=== PATIENT | female | born 1955 | race African-American/Black ===

== ENCOUNTER 2024-03-19 08:32 | Outpatient (CLI) | payer OTHER | END 2024-03-19 08:33 | disposition home or self-care (01) | LOC: CSHMAMMO 08:32 | DX: M81.0 Age-related osteoporosis without current pathological fracture (principal); M85.851 Other specified disorders of bone density and structure, right thigh; M85.852 Other specified disorders of bone density and structure, left thigh; Z91.89 Other specified personal risk factors, not elsewhere classified | CPT/HCPCS: 77080 ==